=== PATIENT | female | born 1960 | race Caucasian/White ===

== ENCOUNTER 2016-05-21 15:36 | Emergency (ER) | payer OTHER ==
[~2016-05-21] VITALS: Ht 167.6 cm; Wt 86.2 kg
[~2016-05-21 15:36] MED LIST: LAMO150T2 PO; MECL-102 PO; ONDA4TAB8 PO
[2016-05-21] MEDS ORDERED: ATIVAN (15:44)
[2016-05-21] MEDS ORDERED: NORCO (15:44)
[2016-05-21] MEDS ORDERED: SOMA (15:44)
--- NOTE | 2016-05-21 17:06 | NUR ---
Pt evaluated for chronic pain by Dr. Martinez. Patient discharged home in stable conditon. Written and verbal after care instructions given. Patient verbalizes understanding of instructions.
[2016-05-21 17:09] VITALS: BP 120/89
== END 2016-05-21 17:09 | disposition home or self-care (01) ==
LOC: ER 15:36
DX: F31.9 Bipolar disorder, unspecified (principal); G89.29 Other chronic pain; Z88.0 Allergy status to penicillin; Z88.8 Allergy status to other drugs, medicaments and biological substances
CPT/HCPCS: 99283; A4663

== ENCOUNTER 2016-08-24 20:50 | Emergency (ER) | payer OTHER ==
[~2016-08-24] VITALS: Ht 170.2 cm; Wt 84.8 kg
[~2016-08-24 20:50] MED LIST changes: +ATIVAN; +NORCO; +SOMA
--- NOTE | 2016-08-24 21:32 | NUR ---
Dr. Crenshaw at bedside for MSE
--- NOTE | 2016-08-24 21:44 | NUR ---
Pt came in for medication refill for chronic pain, anxiety, and fibromyalgia. a/o x 4, nad noted, vss. Patient discharged home in stable conditon. Written and verbal after care instructions given. Patient verbalizes understanding of instructions. Caregiver with pt.
[2016-08-24 21:46] VITALS: BP 124/87
== END 2016-08-24 21:46 | disposition home or self-care (01) ==
LOC: ER 20:53
DX: Z76.0 Encounter for issue of repeat prescription (principal); G89.29 Other chronic pain; F31.9 Bipolar disorder, unspecified; Z88.0 Allergy status to penicillin; Z88.8 Allergy status to other drugs, medicaments and biological substances
CPT/HCPCS: A4663

== ENCOUNTER 2016-11-23 20:31 | Emergency (ER) | payer OTHER ==
[~2016-11-23] VITALS: Ht 167.6 cm; Wt 84.4 kg
--- NOTE | 2016-11-23 21:06 | NUR ---
Patient discharged to home in stable conditon. Written and verbal after care instructions given. Patient verbalizes understanding of instructions.
== END 2016-11-23 21:11 | disposition home or self-care (01) ==
LOC: ER 20:33
DX: G89.29 Other chronic pain (principal); F32.9 Major depressive disorder, single episode, unspecified; Z88.0 Allergy status to penicillin; Z88.5 Allergy status to narcotic agent; Z88.8 Allergy status to other drugs, medicaments and biological substances
CPT/HCPCS: A4663

== ENCOUNTER 2017-01-03 18:31 | Emergency (ER) | payer OTHER ==
[~2017-01-03] VITALS: Ht 172.7 cm; Wt 84.4 kg
[2017-01-03] MEDS ORDERED: LORAZEPAM 0.5 MG TABLET PO ONE (19:00)
[2017-01-03] MEDS ORDERED: HYDROCODONE/APAP 10-325 MG TABLET PO ONE (19:00)
--- NOTE | 2017-01-03 19:10 | NUR ---
Patient discharged to home in stable conditon. Written and verbal after care instructions given. Patient verbalizes understanding of instructions.
[2017-01-03 19:11] VITALS: BP 131/86
[2017-01-03] MEDS ORDERED: HYDROCODONE/APAP 10-325 MG TABLET ONE (19:15)
[2017-01-03] MEDS ORDERED: LORAZEPAM 1 MG TABLET ONE (19:16)
== END 2017-01-03 19:11 | disposition home or self-care (01) ==
LOC: ER 18:32
DX: Z76.0 Encounter for issue of repeat prescription (principal); G89.29 Other chronic pain; R19.7 Diarrhea, unspecified; R11.2 Nausea with vomiting, unspecified; Z88.0 Allergy status to penicillin; Z88.6 Allergy status to analgesic agent; Z88.8 Allergy status to other drugs, medicaments and biological substances; M79.7 Fibromyalgia
CPT/HCPCS: 99283; A4663

== ENCOUNTER 2017-01-29 20:32 | Emergency (ER) | payer OTHER ==
[~2017-01-29] VITALS: Ht 167.6 cm; Wt 84.4 kg
[2017-01-29] MEDS: LORAZEPAM 0.5 MG TABLET PO ONE (23:50)
[2017-01-29] MEDS: CARISOPRODOL 350 MG TABLET PO ONE (23:50)
[2017-01-29] MEDS: HYDROCODONE/APAP 10-325 MG TABLET PO ONE (23:50)
--- NOTE | 2017-01-29 23:50 | NUR ---
Patient discharged to home in stable conditon. Written and verbal after care instructions given. Patient verbalizes understanding of instructions.
[2017-01-30] MEDS ORDERED: HYDROCODONE/APAP 10-325 MG TABLET ONE
[2017-01-30] MEDS ORDERED: LORAZEPAM 1 MG TABLET ONE
[2017-01-30] MEDS ORDERED: CARISOPRODOL 350 MG TABLET ONE
== END 2017-01-29 23:53 | disposition home or self-care (01) ==
LOC: ER 20:33
DX: F13.239 Sedative, hypnotic or anxiolytic dependence with withdrawal, unspecified (principal); F43.10 Post-traumatic stress disorder, unspecified; Z76.0 Encounter for issue of repeat prescription; G89.29 Other chronic pain; M79.7 Fibromyalgia; Z88.0 Allergy status to penicillin; F31.9 Bipolar disorder, unspecified
CPT/HCPCS: 99284; A4663

== ENCOUNTER 2017-01-31 23:49 | Emergency (ER) | payer OTHER ==
[~2017-01-31] VITALS: Ht 167.6 cm; Wt 84.4 kg
--- NOTE | 2017-02-01 00:23 | NUR ---
Pt c/o congestion, sore throat, and CHANCE, also chronic body pains. Pt denies CP, SOB, dizziness, n/v, no other complaints, no distress noted.
--- NOTE | 2017-02-01 02:22 | NUR ---
Gave pt RX and d/c instructions, verbalized understanding.
== END 2017-02-01 03:56 | disposition home or self-care (01) ==
LOC: ER 23:50
DX: J20.9 Acute bronchitis, unspecified (principal); Z88.1 Allergy status to other antibiotic agents; Z88.6 Allergy status to analgesic agent; Z88.8 Allergy status to other drugs, medicaments and biological substances
CPT/HCPCS: 36415; 86403; 87400; 99284; A4663

== ENCOUNTER 2017-03-09 21:20 | Emergency (ER) | payer OTHER ==
[~2017-03-09] VITALS: Ht 167.6 cm; Wt 81.6 kg
--- NOTE | 2017-03-09 21:48 | NUR ---
PATIENT BECAME ANGRY AND YELLING AT DR HERNANDEZ WHEN RX REFILL REQUESTED BY PATIENT WAS NOT GOING TO BE PRESCRIBED
--- NOTE | 2017-03-09 22:13 | NUR ---
Patient discharged to home in stable conditon. Written and verbal after care instructions given. Patient verbalizes understanding of instructions. WALKED OUT OF ER WITH NO DISTRESS NOTED
== END 2017-03-09 22:17 | disposition home or self-care (01) ==
LOC: ER 21:20
DX: G89.29 Other chronic pain (principal); Z76.0 Encounter for issue of repeat prescription; Z76.5 Malingerer [conscious simulation]; M79.7 Fibromyalgia; Z88.0 Allergy status to penicillin; Z88.6 Allergy status to analgesic agent; Z88.8 Allergy status to other drugs, medicaments and biological substances
CPT/HCPCS: A4663

== ENCOUNTER 2017-04-25 04:36 | Emergency (ER) | payer OTHER ==
[~2017-04-25] VITALS: Ht 167.6 cm; Wt 81.6 kg
--- NOTE | 2017-04-25 05:08 | NUR ---
Patient comes in for c/o right shoulder pain. Patient states she had R shoulder pain s/p fall of unknown cause ( Patient does not provide explanation of how fall happened to staff when asked). Patient repeatedly states " I need opiates, I am out of pain meds. Please make sure I get Dilaudid while I am here, I need it". Patient assisted to her bed by staff, no respiratory or cardiovascular distress at this time. Denies chest pain/respiratory distress/nausea/vomiting. Denies LOC/Trauma/Head injury during fall.
[2017-04-25] MEDS ORDERED: HYDROMORPHONE 1 MG/1 ML DISP.SYRIN IM ONE (05:15)
[2017-04-25] MEDS ORDERED: PROMETHAZINE HCL 25 MG/1 ML VIAL IM ONE (05:15)
[2017-04-25] MEDS ORDERED: METOCLOPRAMIDE HCL 10 MG/2 ML VIAL ONE (05:19)
[2017-04-25] MEDS ORDERED: HYDROMORPHONE 2 MG/1 ML DISP.SYRIN ONE (05:19)
[2017-04-25] MEDS ORDERED: METOCLOPRAMIDE HCL 10 MG/2 ML VIAL IM ONE (05:30)
--- NOTE | 2017-04-25 05:48 | NUR ---
Patient discharged to home in stable conditon. Written and verbal after care instructions given. Patient verbalizes understanding of instructions. Ambulated from ER with stable gait. Patients caregiver to drive patient home in private vehicle. R shoulder splint applied with CMS WNL. All belongings with patient. VSS.
--- NOTE | 2017-04-25 05:50 | NUR ---
Patient discharged to home in stable conditon. Written and verbal after care instructions given. Patient verbalizes understanding of instructions.
[2017-04-25 05:52] VITALS: BP 142/95
== END 2017-04-25 05:47 | disposition home or self-care (01) ==
LOC: ER 04:38
DX: S42.301A Unspecified fracture of shaft of humerus, right arm, initial encounter for closed fracture (principal); G89.29 Other chronic pain; Z88.0 Allergy status to penicillin; Z88.6 Allergy status to analgesic agent; Z88.8 Allergy status to other drugs, medicaments and biological substances; Z91.018 Allergy to other foods; Z79.891 Long term (current) use of opiate analgesic; Z79.899 Other long term (current) drug therapy; W18.30XA Fall on same level, unspecified, initial encounter; Y93.89 Activity, other specified; Y99.8 Other external cause status; Y92.89 Other specified places as the place of occurrence of the external cause
CPT/HCPCS: 73030; A4663; J1170; J2550; J2765

== ENCOUNTER 2017-05-28 22:35 | Emergency (ER) | payer OTHER ==
[~2017-05-28] VITALS: Ht 167.6 cm; Wt 81.6 kg
--- NOTE | 2017-05-28 23:24 | NUR ---
PT PACING AROUND ROOOM. PT STATES "LETS CUT TO THE TORSTEN, i JUST NEED MY MEDS TO BE REFILLED"
--- NOTE | 2017-05-28 23:42 | NUR ---
DR GIBSON AT BEDSIDE FOR MSE.
--- NOTE | 2017-05-29 00:17 | NUR ---
Patient discharged to home in stable conditon. Written and verbal after care instructions given. Patient verbalizes understanding of instructions. Pt ambulated from ER w/ steady gait. No distress noted. Pt took all personal belongings.
[2017-05-29 02:17] VITALS: BP 132/78
== END 2017-05-29 02:18 | disposition home or self-care (01) ==
LOC: ER 22:35
DX: Z76.0 Encounter for issue of repeat prescription (principal); E03.9 Hypothyroidism, unspecified; Z88.0 Allergy status to penicillin; Z88.8 Allergy status to other drugs, medicaments and biological substances; Z91.018 Allergy to other foods; Z79.891 Long term (current) use of opiate analgesic; Z79.899 Other long term (current) drug therapy; Z88.6 Allergy status to analgesic agent
CPT/HCPCS: A4663

== ENCOUNTER 2017-06-01 22:58 | Emergency (ER) | payer OTHER ==
[~2017-06-01] VITALS: Ht 167.6 cm; Wt 81.6 kg
--- NOTE | 2017-06-02 00:45 | NUR ---
Dr. Martinez at bedside for MSE.
[2017-06-02] MEDS ORDERED: HYDROCODONE/APAP 10-325 MG TABLET PO ONE (01:30)
[2017-06-02] MEDS ORDERED: HYDROCODONE/APAP 10-325 MG TABLET ONE (01:30)
[2017-06-02] MEDS ORDERED: CLONAZEPAM 0.5 MG TABLET PO ONE (01:30)
[2017-06-02] MEDS ORDERED: CLONAZEPAM 1 MG TABLET ONE (01:30)
--- NOTE | 2017-06-02 01:40 | NUR ---
Patient discharged to home in stable conditon. Written and verbal after care instructions given. Patient verbalizes understanding of instructions. Patient ambulated out of ER with steady gait, Radiology report CD provided, Sling provided, all belongings taken, VSS, no acute signs of distress.
[2017-06-02 02:32] VITALS: BP 99/65
== END 2017-06-02 01:38 | disposition home or self-care (01) ==
LOC: ER 22:59
DX: S42.211A Unspecified displaced fracture of surgical neck of right humerus, initial encounter for closed fracture (principal); Z88.0 Allergy status to penicillin; Z88.8 Allergy status to other drugs, medicaments and biological substances; Z88.6 Allergy status to analgesic agent; Z79.891 Long term (current) use of opiate analgesic; Z79.899 Other long term (current) drug therapy; X58.XXXA Exposure to other specified factors, initial encounter; Y93.89 Activity, other specified; Y92.89 Other specified places as the place of occurrence of the external cause; Y99.8 Other external cause status
CPT/HCPCS: 73020; A4663

== ENCOUNTER 2017-06-25 14:33 | Emergency (ER) | payer OTHER ==
[~2017-06-25] VITALS: Ht 167.6 cm; Wt 81.6 kg
--- NOTE | 2017-06-25 15:11 | NUR ---
PATIENT WAS SEEN BY . DC, RX AND FOLLOW UP INSTRUCTIONS GIVEN AND EXPLAINED TO PATIENT WHO STATES SHE UNDERSTANDS ALL INSTRUCTIONS INCLUDING [employer] PRECAUTIONS.
== END 2017-06-25 15:13 | disposition home or self-care (01) ==
LOC: ER 14:33
DX: Z76.0 Encounter for issue of repeat prescription (principal); G89.29 Other chronic pain; Z88.0 Allergy status to penicillin; Z88.6 Allergy status to analgesic agent; Z88.8 Allergy status to other drugs, medicaments and biological substances; Z79.891 Long term (current) use of opiate analgesic; Z79.899 Other long term (current) drug therapy
CPT/HCPCS: A4663

== ENCOUNTER 2017-07-16 00:26 | Emergency (ER) | payer OTHER ==
[~2017-07-16] VITALS: Ht 172.7 cm; Wt 59.0 kg
--- NOTE | 2017-07-16 00:43 | NUR ---
PT AMBULATED TO ER WITH C/O CHRONIC RIGHT SHOULDER PAIN DUE TO FALL THAT HAPPENED MONTHS AGO. VSS.
--- NOTE | 2017-07-16 00:44 | NUR ---
RIAN ACOSTA AT BEDSIDE FOR MSE.
--- NOTE | 2017-07-16 00:54 | NUR ---
Patient discharged to home in stable conditon. Written and verbal after care instructions given. Patient verbalizes understanding of instructions. Patient left ER and walks in steady gait. All belongings with pt. VSS. No distress noted.
[2017-07-16 00:56] VITALS: BP 137/84
== END 2017-07-16 00:57 | disposition home or self-care (01) ==
LOC: ER 00:26
DX: G89.29 Other chronic pain (principal); Z76.0 Encounter for issue of repeat prescription; G62.9 Polyneuropathy, unspecified; F31.9 Bipolar disorder, unspecified; F43.10 Post-traumatic stress disorder, unspecified; F60.3 Borderline personality disorder; M79.7 Fibromyalgia; Z88.0 Allergy status to penicillin; Z88.6 Allergy status to analgesic agent
CPT/HCPCS: A4663

== ENCOUNTER 2017-09-04 23:36 | Emergency (ER) | payer OTHER ==
[~2017-09-04] VITALS: Ht 167.6 cm; Wt 81.6 kg
--- NOTE | 2017-09-05 00:11 | NUR ---
Patient discharged to home in stable conditon. Written and verbal after care instructions given. Patient verbalizes understanding of instructions. Patient ambulated out of ER with steady gait, no acute signs of distress, VSS, all belongings taken.
[2017-09-05 00:20] VITALS: BP 147/96
== END 2017-09-05 00:15 | disposition home or self-care (01) ==
LOC: ER 23:37
DX: Z76.0 Encounter for issue of repeat prescription (principal); G89.29 Other chronic pain; Z88.0 Allergy status to penicillin; Z88.6 Allergy status to analgesic agent; Z88.8 Allergy status to other drugs, medicaments and biological substances; Z91.018 Allergy to other foods; Z79.891 Long term (current) use of opiate analgesic; Z79.899 Other long term (current) drug therapy
CPT/HCPCS: 99283; A4663

== ENCOUNTER 2017-09-05 21:16 | Emergency (ER) | payer OTHER ==
[~2017-09-05] VITALS: Ht 165.1 cm; Wt 74.8 kg
--- NOTE | 2017-09-05 21:32 | NUR ---
Dr. Crenshaw at bedside for MSE.
[2017-09-05 21:46] VITALS: BP 145/86
== END 2017-09-05 21:46 | disposition home or self-care (01) ==
LOC: ER 21:18
DX: Z76.0 Encounter for issue of repeat prescription (principal); Z88.0 Allergy status to penicillin; Z88.8 Allergy status to other drugs, medicaments and biological substances; Z91.018 Allergy to other foods; Z79.891 Long term (current) use of opiate analgesic; Z79.899 Other long term (current) drug therapy
CPT/HCPCS: A4663

== ENCOUNTER → 2017-09-10 | Emergency (ER) | payer OTHER ==
[~2017-09-10] VITALS: Ht 167.6 cm; Wt 81.6 kg
--- NOTE | 2017-09-10 01:27 | NUR ---
Patient discharged to home in stable conditon. Written and verbal after care instructions given. Patient verbalizes understanding of instructions. Patient able to ambulate unassisted with a steady gait. Patient left with all personal belongings.
[2017-09-10 01:29] VITALS: BP 122/78
== END | disposition home or self-care (01) ==
LOC: ER 00:28
DX: R07.0 Pain in throat (principal); M25.511 Pain in right shoulder; R22.31 Localized swelling, mass and lump, right upper limb; Z88.0 Allergy status to penicillin; Z88.6 Allergy status to analgesic agent; Z88.8 Allergy status to other drugs, medicaments and biological substances; Z91.018 Allergy to other foods; Z79.891 Long term (current) use of opiate analgesic; Z79.899 Other long term (current) drug therapy
CPT/HCPCS: 73030; A4663

== ENCOUNTER 2017-09-14 04:46 | Emergency (ER) | payer OTHER ==
[~2017-09-14] VITALS: Ht 167.6 cm; Wt 79.4 kg
--- NOTE | 2017-09-14 04:58 | NUR ---
DR GORAN MODI MD AT BEDSIDE FOR MSE.
--- NOTE | 2017-09-14 05:30 | NUR ---
Patient discharged to home in stable conditon. Written and verbal after care instructions given. Patient verbalizes understanding of instructions. Pt took all personal belongings. No distress noted.
[2017-09-14 05:35] VITALS: BP 127/78
== END 2017-09-14 05:36 | disposition home or self-care (01) ==
LOC: ER 04:49
DX: R07.0 Pain in throat (principal); M25.511 Pain in right shoulder; M79.672 Pain in left foot; Z88.0 Allergy status to penicillin; Z88.6 Allergy status to analgesic agent; Z88.8 Allergy status to other drugs, medicaments and biological substances; Z91.018 Allergy to other foods; Z79.891 Long term (current) use of opiate analgesic; Z79.899 Other long term (current) drug therapy
CPT/HCPCS: 99281; A4663

== ENCOUNTER 2017-11-01 03:39 | Emergency (ER) | payer OTHER ==
[~2017-11-01] VITALS: Ht 167.6 cm; Wt 79.4 kg
--- NOTE | 2017-11-01 04:12 | NUR ---
Patient discharged to home in stable conditon. Written and verbal after care instructions given. Patient verbalizes understanding of instructions.
[2017-11-01 04:13] VITALS: BP 141/79
== END 2017-11-01 04:13 | disposition home or self-care (01) ==
LOC: ER 03:41
DX: K08.89 Other specified disorders of teeth and supporting structures (principal); Z76.0 Encounter for issue of repeat prescription; Z88.0 Allergy status to penicillin; Z88.6 Allergy status to analgesic agent; Z88.8 Allergy status to other drugs, medicaments and biological substances; Z91.018 Allergy to other foods
CPT/HCPCS: A4663

== ENCOUNTER 2022-12-29 02:44 | Emergency (ER) | payer OTHER ==
[~2022-12-29] VITALS: Ht 167.6 cm; Wt 83.9 kg
[~2022-12-29 02:44] MED LIST changes: -MECL-102 PO; +MECL-159 PO
[2022-12-29] MEDS ORDERED: HYDROMORPHONE 1 MG/1 ML DISP.SYRIN IM ONE (03:15)
[2022-12-29] MEDS ORDERED: LORAZEPAM 0.5 MG TABLET PO ONE (03:15)
[2022-12-29] MEDS ORDERED: LORAZEPAM 1 MG TABLET ONE (03:25)
[2022-12-29] MEDS ORDERED: HYDROMORPHONE 2 MG/1 ML DISP.SYRIN ONE (03:25)
[2022-12-29 03:28] LABS: BASOPHILS % (AUTO) 0.4 % (0.0-2.0); EOSINOPHILS % (AUTO) 0.4 % (0.0-7.0); HEMATOCRIT 33.2 % (31.2-41.9); HEMOGLOBIN 10.8 g/dL (10.9-14.3); LYMPHOCYTES # (AUTO) 1.5 K/uL (0.8-4.8); LYMPHOCYTES % (AUTO) 30.5 % (20.5-51.5); MEAN CORPUSCULAR HEMOGLOBIN 26.2 uug (24.7-32.8); MEAN CORPUSCULAR HGB CONC 33 g/dL (32.3-35.6); MEAN CORPUSCULAR VOLUME 80.6 fL (75.5-95.3); MONOCYTES # (AUTO) 0.5 K/uL (0.1-1.30); MONOCYTES % (AUTO) 9.7 % (0.0-11.0); PLATELET COUNT (AUTO) 269 K/uL (179-408); RED BLOOD CELL COUNT(AUTO) 4.11 MIL/uL (3.63-4.92); RED CELL DISTRIBUTION WIDTH 16.1 % (12.3-17.7)
[2022-12-29] MEDS ORDERED: FLAS1KIT2 TP (03:35)
[2022-12-29] MEDS ORDERED: LORA0.5T48 PO (03:35)
[2022-12-29] MEDS ORDERED: FLAS1EAC2 MC (03:35)
[2022-12-29 03:36] LABS: CALCIUM 9.1 mg/dL (8.5-10.1); CARBON DIOXIDE 25 mmol/L (21-32); CHLORIDE 98 mmol/L (98-107); CREATININE 0.8 mg/dL (0.6-1.3); GLUCOSE 110 mg/dL (74-106); POTASSIUM 3.6 mmol/L (3.5-5.1); SODIUM SERUM 132 mmol/L (136-145); UREA NITROGEN, BLOOD 15 mg/dL (7-18)
[2022-12-29 03:47] LABS: DIFFERENTIAL COMMENT 1
[2022-12-29] MEDS ORDERED: MAGNESIUM SULFATE/D5W 300 ML ONE (04:47)
[2022-12-29] MEDS: MAGNESIUM SULFATE/D5W 100 ML IV SCH ×3 (04:48→06:08)
[2022-12-29] MEDS ORDERED: CYANOCOBALAMIN 1000 MCG/ML VIAL ONE (05:12)
[2022-12-29] MEDS ORDERED: CYANOCOBALAMIN 1000 MCG/ML VIAL IM ONE (05:15)
[2022-12-29] MEDS ORDERED: MECO10006 IM (05:27)
[2022-12-29] MEDS ORDERED: SYRI-29 MC (05:27)
[2022-12-29] MEDS ORDERED: HYDR4TAB4 PO (06:06)
[2022-12-29 06:23] VITALS: BP 145/85; O2SAT 98
== END 2022-12-29 06:23 | disposition home or self-care (01) ==
LOC: ER 02:56
DX: M79.7 Fibromyalgia (principal); G89.29 Other chronic pain; F41.8 Other specified anxiety disorders; K21.9 Gastro-esophageal reflux disease without esophagitis; E83.42 Hypomagnesemia; Z88.0 Allergy status to penicillin; Z88.8 Allergy status to other drugs, medicaments and biological substances; Z79.899 Other long term (current) drug therapy
CPT/HCPCS: 36415; 71045; 83735; 84484; 85025; 93005; A4606; A4663; J1170; J3420; J3475

== ENCOUNTER 2023-01-27 11:12 | Emergency (ER) | payer OTHER ==
[~2023-01-27 11:12] MED LIST changes: +ALPR1TAB2 PO; +FLAS1EAC2 MC; +FLAS1KIT2 TP; +HYDR4TAB4 PO; +LORA0.5T48 PO; +MECO10006 IM; +ONDA4TAB5 PO; +SYRI-29 MC
[2023-01-27] MEDS ORDERED: MAG HYDROX/AL HYDROX/SIMETH 30 ML LIQUID UDC PO ONE (13:00)
[2023-01-27] MEDS ORDERED: MAG HYDROX/AL HYDROX/SIMETH 30 ML LIQUID UDC ONE (13:17)
[2023-01-27] MEDS ORDERED: MORPHINE SULFATE 4 MG/1 ML DISP.SYRIN ONE (13:28)
[2023-01-27] MEDS ORDERED: MORPHINE SULFATE 4 MG/1 ML DISP.SYRIN IV ONE (13:30)
[2023-01-27 13:56] LABS: BASOPHILS % (AUTO) 0.6 % (0.0-2.0); DIFFERENTIAL COMMENT 0; EOSINOPHILS # (AUTO) 0.1 K/uL (0.0-0.7); EOSINOPHILS % (AUTO) 1.8 % (0.0-7.0); HEMATOCRIT 29.7 % (31.2-41.9); HEMOGLOBIN 9.3 g/dL (10.9-14.3); LYMPHOCYTES # (AUTO) 1.4 K/uL (0.8-4.8); LYMPHOCYTES % (AUTO) 35.5 % (20.5-51.5); MEAN CORPUSCULAR HEMOGLOBIN 25.4 uug (24.7-32.8); MEAN CORPUSCULAR HGB CONC 31 g/dL (32.3-35.6); MONOCYTES # (AUTO) 0.5 K/uL (0.1-1.30); MONOCYTES % (AUTO) 12.5 % (0.0-11.0); NEUTROPHILS % (AUTO) 49.6 % (38.5-71.5); PLATELET COUNT (AUTO) 266 K/uL (179-408); RED BLOOD CELL COUNT(AUTO) 3.66 MIL/uL (3.63-4.92); RED CELL DISTRIBUTION WIDTH 15.1 % (12.3-17.7)
[2023-01-27 14:02] LABS: ALANINE AMINOTRANSFERASE 24 U/L (14-59); ALKALINE PHOSPHATASE 54 U/L (50-136); ASPARTATE AMINOTRANSFERASE 15 U/L (15-37); BILIRUBIN,TOTAL 0.2 mg/dL (0.2-1.0); CARBON DIOXIDE 28 mmol/L (21-32); CHLORIDE 101 mmol/L (98-107); CREATININE 0.9 mg/dL (0.6-1.3); GLUCOSE 103 mg/dL (74-106); POTASSIUM 3.9 mmol/L (3.5-5.1); SODIUM SERUM 136 mmol/L (136-145); TOTAL PROTEIN, SERUM 6.3 g/dL (6.4-8.2); UREA NITROGEN, BLOOD 8 mg/dL (7-18)
[2023-01-27 14:21] LABS: BILIRUBIN,DIRECT < 0.1 mg/dL (0.0-0.2)
[2023-01-27] MEDS ORDERED: ALPR0.5T8 PO (15:14)
[2023-01-27] MEDS ORDERED: HYDR4TAB4 PO (15:14)
[2023-01-27 15:59] VITALS: BP 122/60; TEMP 98.1; O2SAT 99
== END 2023-01-27 16:00 | disposition home or self-care (01) ==
LOC: ER 11:12
DX: R07.89 Other chest pain (principal); F31.9 Bipolar disorder, unspecified; F41.9 Anxiety disorder, unspecified; Z79.899 Other long term (current) drug therapy; Z60.2 Problems related to living alone; Z88.0 Allergy status to penicillin; Z88.5 Allergy status to narcotic agent
CPT/HCPCS: 99285; 96374; 71045; 80076; 80048; 85025; 84484 ×2; 36415; 93005 ×2; J2270; A4606; A4663

== ENCOUNTER 2023-02-28 03:55 | Emergency (ER) | payer OTHER ==
[~2023-02-28] VITALS: Ht 170.2 cm; Wt 81.6 kg
[~2023-02-28 03:55] MED LIST changes: +ALPR0.5T8 PO; -ATIVAN; -LORA0.5T48 PO; -MECO10006 IM
[2023-02-28] MEDS ORDERED: ONDA4TAB5 PO (05:19)
[2023-02-28] MEDS ORDERED: ALPR1TAB7 PO (05:19)
[2023-02-28] MEDS ORDERED: HYDR4TAB4 PO (05:19)
[2023-02-28] MEDS ORDERED: HYDROMORPHONE HCL 2 MG TABLET ONE (05:24)
[2023-02-28] MEDS ORDERED: ONDANSETRON HCL 4 MG TABLET ONE (05:24)
[2023-02-28] MEDS ORDERED: ONDANSETRON HCL 4 MG TABLET PO ONE (05:30)
[2023-02-28] MEDS ORDERED: HYDROMORPHONE HCL 2 MG TABLET PO ONE (05:30)
[2023-02-28 05:32] VITALS: BP 139/85; TEMP 97.5; O2SAT 100
[2023-02-28] MEDS ORDERED: NALO4SPR BNOSTRILS (09:37)
== END 2023-02-28 05:32 | disposition home or self-care (01) ==
LOC: ER 03:59
DX: R07.89 Other chest pain (principal); F41.9 Anxiety disorder, unspecified; R11.0 Nausea; F31.9 Bipolar disorder, unspecified; Z79.899 Other long term (current) drug therapy; Z60.2 Problems related to living alone; Z88.1 Allergy status to other antibiotic agents; Z88.0 Allergy status to penicillin; Z88.2 Allergy status to sulfonamides
CPT/HCPCS: A4606; A4663; Q0162

== ENCOUNTER 2023-07-14 11:21 | Emergency (ER) | payer OTHER ==
[~2023-07-14] VITALS: Ht 167.6 cm; Wt 72.6 kg
[~2023-07-14 11:21] MED LIST changes: +ALPR1TAB7 PO; +NALO4SPR BNOSTRILS
[2023-07-14] MEDS ORDERED: HYDROMORPHONE HCL 2 MG TABLET ONE (12:00)
[2023-07-14] MEDS: HYDROMORPHONE HCL 2 MG TABLET PO ONE (12:02)
[2023-07-14 12:11] LABS: *BILIRUBIN,URIN NEGATIVE (NEGATIVE); *BLOOD, URINE NEGATIVE (NEGATIVE); *CLARITY,URINE CLEAR (CLEAR); *COLOR,URINE YELLOW (YELLOW); *KETONES,URINE NEGATIVE (NEGATIVE); *PROTEIN,URINE NEGATIVE (NEGATIVE); *UROBILINOGEN,URINE 0.2 E.U./dl (NORMAL); LEUKOCYTE ESTERASE ,URINE NEGATIVE (NEGATIVE); NITRITE, URINE NEGATIVE (NEGATIVE); UGLUCOSE NEGATIVE (NEGATIVE)
[2023-07-14] MEDS ORDERED: LORA0.5T48 PO (12:41)
[2023-07-14] MEDS ORDERED: CLIN300C12 PO (12:41)
[2023-07-14 12:51] VITALS: BP 137/94; TEMP 97; O2SAT 100
== END 2023-07-14 12:52 | disposition home or self-care (01) ==
LOC: ER 11:21
DX: M27.2 Inflammatory conditions of jaws (principal); F41.9 Anxiety disorder, unspecified; F31.9 Bipolar disorder, unspecified; Z79.899 Other long term (current) drug therapy; Z60.2 Problems related to living alone; Z88.0 Allergy status to penicillin; Z88.1 Allergy status to other antibiotic agents
CPT/HCPCS: A4606; A4663

== ENCOUNTER → 2024-11-21 | Emergency (ER) | payer MEDICARE, OTHER ==
[~2024-11-21] VITALS: Ht 167.6 cm; Wt 73.0 kg
[~2024-11-21] MED LIST changes: +CLIN300C12 PO; +HYDR2TAB4 PO; +HYDROMORPHONE HCL 2 MG TABLET ONE; +LORA0.5T48 PO; +LORA2TAB95 PO; +LORAZEPAM 1 MG TABLET ONE
[2024-11-21 05:38] VITALS: BP 138/94
[2024-11-21] MEDS: LORAZEPAM 0.5 MG TABLET PO ONE (05:54)
[2024-11-21] MEDS: HYDROMORPHONE HCL 2 MG TABLET PO ONE (05:56)
[2024-11-21 06:09] VITALS: BP 138/94; O2SAT 99
== END | disposition home or self-care (01) ==
LOC: ER 05:45
DX: R07.89 Other chest pain (principal); F11.20 Opioid dependence, uncomplicated; F31.9 Bipolar disorder, unspecified; F41.9 Anxiety disorder, unspecified; G89.29 Other chronic pain; I51.9 Heart disease, unspecified; K22.10 Ulcer of esophagus without bleeding; M79.7 Fibromyalgia; Z79.899 Other long term (current) drug therapy; Z88.0 Allergy status to penicillin; Z88.6 Allergy status to analgesic agent; Z88.8 Allergy status to other drugs, medicaments and biological substances
CPT/HCPCS: 93005; A4606; A4663

== ENCOUNTER 2024-12-20 22:13 | Emergency (ER) | payer MEDICARE, OTHER ==
[~2024-12-20] VITALS: Ht 167.6 cm; Wt 82.1 kg
[~2024-12-20 22:13] MED LIST changes: -HYDROMORPHONE HCL 2 MG TABLET ONE; -LORAZEPAM 1 MG TABLET ONE
[2024-12-21] MEDS ORDERED: LORAZEPAM 1 MG TABLET ONE (00:03)
[2024-12-21] MEDS: LORAZEPAM 0.5 MG TABLET PO ONE (00:05)
[2024-12-21] MEDS: HYDROMORPHONE HCL 2 MG TABLET PO ONE (00:05)
[2024-12-21 00:18] LABS: *BILIRUBIN,URIN NEGATIVE (NEGATIVE); *BLOOD, URINE NEGATIVE (NEGATIVE); *CLARITY,URINE CLEAR (CLEAR); *COLOR,URINE LIGHT YELLOW (YELLOW); *KETONES,URINE NEGATIVE (NEGATIVE); *PROTEIN,URINE NEGATIVE (NEGATIVE); *UROBILINOGEN,URINE 0.2 E.U./dl (NORMAL); LEUKOCYTE ESTERASE ,URINE 1+ (NEGATIVE); NITRITE, URINE NEGATIVE (NEGATIVE); UGLUCOSE NEGATIVE (NEGATIVE)
[2024-12-21 00:25] LABS: PLATELET COUNT (AUTO) 273 K/uL (179-408); RED BLOOD CELL COUNT(AUTO) 3.82 MIL/uL (3.63-4.92); RED CELL DISTRIBUTION WIDTH 17.7 % (12.3-17.7); WHITE BLOOD COUNT (AUTO) 4.0 K/uL (3.8-11.8)
[2024-12-21 00:33] LABS: CREATININE 0.6 mg/dL (0.6-1.3); SODIUM SERUM 139.0 mmol/L (136-145); UREA NITROGEN, BLOOD 9.0 mg/dL (7-18)
[2024-12-21 00:33] LABS: SQUAMOUS EPITHELIAL CELL,UR FEW /HPF (NONE SEEN)
[2024-12-21 00:38] LABS: ASPARTATE AMINOTRANSFERASE 23.0 U/L (15-37); TOTAL PROTEIN, SERUM 7.5 g/dL (6.4-8.2)
[2024-12-21 00:40] VITALS: BP 135/76
[2024-12-21 01:24] LABS: LYMPHOCYTES % (MANUAL) 30 % (20-40); MONOCYTES % (MANUAL) 10 % (2-10); NEUTROPHILS % (MANUAL) 60 % (42-75); PLATELET ESTIMATE ADEQUATE
[2024-12-21] MEDS ORDERED: HYDR2TAB4 PO (01:24)
[2024-12-21] MEDS ORDERED: LORA-259 PO (01:24)
[2024-12-21] MEDS: FOSFOMYCIN TROMETHAMINE 3 GM PACKET PO ONE (01:25)
[2024-12-21 02:33] VITALS: BP 128/72; O2SAT 99
== END 2024-12-21 01:28 | disposition home or self-care (01) ==
LOC: ER 22:13
DX: F11.20 Opioid dependence, uncomplicated (principal); G89.29 Other chronic pain; N39.0 Urinary tract infection, site not specified; K20.90 Esophagitis, unspecified without bleeding; M79.7 Fibromyalgia; Z79.899 Other long term (current) drug therapy; Z87.19 Personal history of other diseases of the digestive system; Z88.0 Allergy status to penicillin; Z88.6 Allergy status to analgesic agent; Z88.7 Allergy status to serum and vaccine; Z88.8 Allergy status to other drugs, medicaments and biological substances
CPT/HCPCS: 36415; 70030-TC; 83605; 83735; 87086; A4606; A4663